=== PATIENT | female | born 1990 | race Caucasian/White ===

== ENCOUNTER 2021-10-16 19:24 | Emergency (ER) | payer MEDICAID, OTHER ==
[~2021-10-16] VITALS: Ht 157.5 cm; Wt 90.3 kg
[2021-10-16 19:41] VITALS: BP 143/70
--- NOTE | 2021-10-16 21:57 | NUR ---
PATIENT LEFT WITHOUT BEING SEEN BY DR. DAO. NO FURTHER CARE PROVIDED FOR PATIENT.
--- NOTE | 2021-10-16 21:57 | NUR ---
PT CALLED FROM INSIDE LOBBY AND OUTSIDE, NO ANSWER
== END 2021-10-16 21:57 | disposition left against medical advice (07) ==
LOC: MED 19:24
DX: H92.01 Otalgia, right ear (principal); Z53.21 Procedure and treatment not carried out due to patient leaving prior to being seen by health care provider